=== PATIENT | female | born 1960 | race Caucasian/White ===

== ENCOUNTER 2018-04-18 08:39 | Outpatient (CLI) | payer MEDICAID, SELFPAY ==
[2018-04-18 10:02] LABS: ALT 50 U/L (12-78); AST 26 U/L (15-37); Albumin 3.6 g/dL (3.4-5.0); Alkaline Phosphatase 135 U/L (46-116); Bilirubin, Total 0.4 mg/dL (0.2-1.0); Total Protein 7.1 g/dL (6.4-8.2)
[2018-04-18 10:03] LABS: Cholesterol 163 mg/dL (50-200); HDL Cholesterol 34 mg/dL (40-60); LDL CHOLESTEROL 108 mg/dL (<100); Triglyceride 140 mg/dL (30-150)
== END 2018-04-18 08:59 ==
PROVIDERS: PCP Family Medicine; Visit Provider Family Medicine
DX: E11.9 Type 2 diabetes mellitus without complications (principal); E78.5 Hyperlipidemia, unspecified; R74.8 Abnormal levels of other serum enzymes
CPT/HCPCS: 36415; 80061; 80076; 83721

== ENCOUNTER 2018-06-09 11:03 | Outpatient (CLI) | payer MEDICAID, SELFPAY ==
--- NOTE | 2018-06-09 10:45 | DI.RAD_ITS ---
SYMPTOMS/DIAGNOSIS: JACOBO RHONCHI ON EXAM, ACUTE BRONCHITIS, J20.9 PA AND LATERAL CHEST: Comparison is made with [id number]. The heart is enlarged, unchanged. The patient is status post CABG. The lungs appear clear. No infiltrate, effusion or pulmonary edema is seen. IMPRESSION: Cardiomegaly. No acute abnormality.
== END 2018-06-09 11:23 ==
PROVIDERS: PCP Family Medicine; Visit Provider Family Medicine
DX: J20.9 Acute bronchitis, unspecified (principal); I51.7 Cardiomegaly; J98.8 Other specified respiratory disorders
CPT/HCPCS: 71046

== ENCOUNTER 2018-12-10 14:01 | Emergency (ER) | payer MEDICAID, SELFPAY ==
[2018-12-10 14:12] VITALS: BP 143/78; PULSE 93; RESP 18; TEMP 36.6; O2SAT 97
--- NOTE | 2018-12-10 14:28 | DI.RAD_ITS ---
SYMPTOM/DIAGNOSIS: COUGH FRONTAL AND LATERAL CHEST: Comparison is made with 06/09/18. Heart size and pulmonary vasculature are within normal limits. Sternal wires are in place. The lungs are clear. The bones appear intact. IMPRESSION: No acute pulmonary process.
--- NOTE | 2018-12-10 14:36 | ED.GENADUL_ITS ---
Discharge Plan Disposition Patient Disposition: HOME Condition: Stable Discharge Details Chief Complaint: RespSymp Clinical Impression: Otitis media, Otitis externa, URI (upper respiratory infection) Primary Care Provider: Oskar Moreno ED Provider: Dimitrios Bateman Home Meds and New Rx's Prescriptions: New amoxicillin-pot clavulanate [Augmentin] 875-125 mg tablet 1 tab PO BID 7 Days Qty: 14 RF: 0 Ciprodex 0.3-0.1 % drops,suspension 4 drp OT BID 7 Days Qty: 7.5 RF: 0 Continued metformin 1,000 mg tablet 1,000 mg PO BID MDD 2,000 mg Qty: 180 RF: 3 Praluent Pen 75 mg/mL pen injector 75 mg subcut q2w Qty: 2 RF: 6 albuterol sulfate [ProAir HFA] 90 mcg/actuation HFA aerosol inhaler 2 puff Inhalation Q4H PRN Qty: 1 RF: 12 atorvastatin 80 mg tablet 80 mg PO DAILY Qty: 90 RF: 3 nitroglycerin 0.4 mg tablet, sublingual 0.4 mg Sublingual PRN Qty: 30 RF: 6 metoprolol succinate 50 mg tablet extended release 24 hr 50 mg PO DAILY Qty: 90 RF: 3 Farxiga 10 mg tablet 10 mg PO QAM Qty: 90 RF: 3 Vitamin D3 (calcium cit-phos) 1 EACH tablet 1 ea PO DAILY Qty: 90 RF: 3 aspirin [Aspir-81] 81 MG tablet,delayed release (DR/EC) 81 mg PO MWF Qty: 100 RF: 3 (DME) lancets 1 EACH misc 1 ea Miscellaneous DAILY Qty: 100 RF: 6 isosorbide mononitrate 10 MG tablet 10 mg PO BID Qty: 180 RF: 3 ezetimibe [Zetia] 10 MG tablet 10 mg PO DAILY Qty: 90 RF: 3 magnesium oxide 400 MG capsule 400 mg PO HS Qty: 90 RF: 3 indomethacin 25 mg capsule 25 mg PO TID PRN (Reason: migraine) Qty: 30 RF: 3 omeprazole 20 mg capsule,delayed release(DR/EC) 20 mg PO DAILY Qty: 90 RF: 3 amitriptyline 25 mg tablet 25 mg PO HS Qty: 90 RF: 3 (DME) FreeStyle Lite Strips strip 1 ea Miscellaneous BID Qty: 180 RF: 6 Discharge Instructions Instructions: Otitis Externa (ED), Otitis Media (ED), Upper Respiratory Infection (ED) Additional Instructions: Please take medication as prescribed and return to the emergency department for any new or significant worsening of symptoms. Otherwise during illness please get plenty of rest and follow-up with your primary care provider if not improving. Referrals: Oskar Moreno, [Primary Care Provider] - (If not improving in the next 5 days) Discharge Data Discharge Date/Time-TO BE ENTERED AT DEPARTURE: 12/10/18 16:27 Medical Decision Making Patient presenting to the emergency department for chief complaint of cough, and bilateral ear pain. Patient states that she started having the symptoms which worsened over the past week. Patient does state some drainage from her left ear that occurred within the last couple days. She does state some productivity of cough but mostly dry. Patient does state that she has had some sweating episodes but states this is normal for her . Patient denies fever chills, chest pain but does state some shortness of breath which is at her baseline. Patient is a former smoker that uses albuterol on a daily basis for her shortness of breath. Physical exam shows clear lung sounds except diminished in the right lower lobe, no wheezing, no tachypnea, and dry cough. HEENT exam is unremarkable except for left ear canal erythema, mild exudate, and some purulence noted behind TM. Due to edema difficult to visualize full TM but there is concern for possible rupture. Given patient's persistent worsening cough plan to do chest x-ray for concern of pneumonia but given left TM findings plan to treat for otitis media along with otitis externa Review of radiological imaging of chest shows no acute findings to suggest pneumonia. Patient placed upon Augmentin given that she states within the past couple months she has been on an antibiotic for bronchitis or pneumonia. Patient also placed upon Ciprodex for otitis externa. Return precautions were discussed. After discussion of diagnosis and plan of care patient has no further needs, questions, or concerns and states clear understanding to return to the emergency department for any worsening symptoms. HPI General Date/Time Provider Initiated Documentation: 12/10/18 14:08 . Limitations to Documentation: no limitations . Information obtained by: patient . History of Present Illness 58 year old F presents to the emergency department with the chief complaint of Cough and L ear pain, described as moderate, Quality is described as aching, and is localized to the head and left (ear). Patient reports no radiation. Patient started experiencing this week(s) (1) and it has been constant. No relieving factors improve symptom(s), No exacerbating factors reported . Patient notes cough; denies fever/chills, headaches, malaise and nausea/vomiting. Patient did receive the following treatments prior to arrival, none Related Data Home Medications Medication Instructions Recorded Confirmed Vitamin D3 (calcium cit-phos) 1 ea PO DAILY #90 10/10/12 12/10/18 aspirin [Aspir-81] 81 mg PO MWF #100 tab 04/06/17 12/10/18 lancets #100 ea 08/23/17 12/10/18 ezetimibe [Zetia] 10 mg PO DAILY #90 tab 12/09/17 12/10/18 isosorbide mononitrate 10 mg PO BID #180 tab-cap 12/09/17 12/10/18 magnesium oxide 400 mg PO HS #90 tab-cap 12/09/17 12/10/18 alirocumab 75 mg/mL subcutaneous 75 mg SUBCUT q2w #2 pen 02/24/18 12/10/18 pen injector metformin 1,000 mg tablet 1,000 mg PO BID #180 tab MDD 2,000 02/24/18 12/10/18 mg indomethacin 25 mg capsule 25 mg PO TID PRN #30 tab-cap 03/28/18 12/10/18 albuterol sulfate 90 mcg/actuation 2 puff INHALATION Q4H PRN #1 06/09/18 12/10/18 aerosol inhaler inhaler atorvastatin 80 mg tablet 80 mg PO DAILY #90 tab-cap 06/09/18 12/10/18 metoprolol succinate 50 mg 50 mg PO DAILY #90 tab 06/09/18 12/10/18 tablet,extended release 24 hr nitroglycerin 0.4 mg sublingual 0.4 mg SUBLINGUAL PRN #30 tab 06/09/18 12/10/18 tablet omeprazole 20 mg capsule,delayed 20 mg PO DAILY #90 tab-cap 08/23/18 12/10/18 release dapagliflozin 10 mg tablet 10 mg PO QAM #90 tab 09/13/18 12/10/18 amitriptyline 25 mg tablet 25 mg PO HS #90 tab 10/04/18 12/10/18 blood sugar diagnostic #180 strip 10/25/18 12/10/18 amoxicillin-pot clavulanate 1 tab PO BID 7 Days #14 tab 12/10/18 [Augmentin] ciprofloxacin-dexamethasone 4 drp OT BID 7 Days #7.5 ml 12/10/18 [Ciprodex] Previous Rx's Medication Instructions Recorded lancets #100 ea 08/23/17 ezetimibe [Zetia] 10 mg PO DAILY #90 tab 12/09/17 isosorbide mononitrate 10 mg PO BID #180 tab-cap 12/09/17 magnesium oxide 400 mg PO HS #90 tab-cap 12/09/17 alirocumab 75 mg/mL subcutaneous 75 mg SUBCUT q2w #2 pen 02/24/18 pen injector metformin 1,000 mg tablet 1,000 mg PO BID #180 tab MDD 2,000 02/24/18 mg indomethacin 25 mg capsule 25 mg PO TID PRN #30 tab-cap 03/28/18 albuterol sulfate 90 mcg/actuation 2 puff INHALATION Q4H PRN #1 06/09/18 aerosol inhaler inhaler atorvastatin 80 mg tablet 80 mg PO DAILY #90 tab-cap 06/09/18 metoprolol succinate 50 mg 50 mg PO DAILY #90 tab 06/09/18 tablet,extended release 24 hr nitroglycerin 0.4 mg sublingual 0.4 mg SUBLINGUAL PRN #30 tab 06/09/18 tablet omeprazole 20 mg capsule,delayed 20 mg PO DAILY #90 tab-cap 08/23/18 release dapagliflozin 10 mg tablet 10 mg PO QAM #90 tab 09/13/18 amitriptyline 25 mg tablet 25 mg PO HS #90 tab 10/04/18 blood sugar diagnostic #180 strip 10/25/18 amoxicillin-pot clavulanate 1 tab PO BID 7 Days #14 tab 12/10/18 [Augmentin] ciprofloxacin-dexamethasone 4 drp OT BID 7 Days #7.5 ml 12/10/18 [Ciprodex] Allergies Allergy/AdvReac Type Severity Reaction Status Date / Time No Known Allergies Allergy Verified 12/10/18 14:16 General Stated Complaint: RespSymp ASHLEE: 4 Review of Systems Constitutional Reports system reviewed and no additional complaints, except as docu, Denies chills, Denies fever(s), Denies headache(s), Denies malaise, Denies night sweats and Denies weakness ENT Reports abnormal hearing (L ear), Reports ear discharge (L ear, like cottage cheese), Denies headache(s), Denies nasal congestion, Reports nasal discharge (yellow drainage), Denies post nasal drip, Denies sinus pain, Denies sinus pressure and Denies sore throat Cardiovascular Denies chest pain Respiratory Reports change in phlegm color (llow), Reports chest congestion, Reports cough, Denies hemoptysis and Reports pain with cough Neurologic Reports abnormal hearing (L ear), Denies headache(s) and Denies weakness [facility] Medical History (Updated 12/09/18 @ 12:05 by Sami Peng) Atherosclerosis of [place] coronary artery of [place] heart without angina pectoris (Chronic 08/30/06) Carotid artery stenosis (Chronic 09/08/11) Chronic airway obstruction, not elsewhere classified (Chronic 09/08/11) Chronic airway obstruction, not elsewhere classified (Chronic 09/08/11) Coronary atherosclerosis of [place] coronary vessel (Chronic 08/30/06) Diabetes mellitus (Chronic 09/16/10) DM w/ complication (Chronic) Elevated alkaline phosphatase measurement (Chronic 12/30/15) Migraine (Chronic) Obesity, unspecified (Chronic 09/08/11) Pain, joint, lower leg, left (Chronic 09/08/11) Pure hypercholesterolemia (Chronic 09/08/11) Surgical History (Updated 05/12/18 @ 12:[address]) Colonoscopy - MAC (03/08/15) Coronary Stent (11/03/13) Replacement of total knee joint (05/04/11) Family History Mother Neoplasm Father No problems noted. Sister Breast cancer Brother No problems noted. Brother No problems noted. Social History (Updated 02/24/18 @ 09:36 by Dede Lee LPN) Smoking/Tobacco Use Status: Former Tobacco Use Alcohol Intake: never Drug use: Never Substance use type: does not use Adopted: No Caregiver/Support person: No Foster care: No Household members: spouse Housing: house Number of Children: 2 number of grandchildren: 4 What type of physical activity do you participate in: walking Duration: 15-30 minutes/day Frequency: 1-2 times per week Water heater temp set <120 deg: Yes Working smoke detector in home: Yes Fire extinguisher in home: Yes Carbon monox detector in home: Yes Do you feel safe at home: Yes Do you feel safe in your relationship?: Yes Exam Const General: cooperative, comfortable, no acute distress, well developed and well groomed Nutritional Appearance: obese Orientation: alert and oriented x3 HENMT Head: normal to inspection, normocephalic and atraumatic Ears: TM normal on the right, EAC abnormal (erythema and white discharge in ear canal) erythema and EAC tenderness, external ear abnormal auricular tenderness and TM abnormal (loss of landmarks) dull General nose exam: external nose normal Face and sinus: normal facial exam and face symmetric Mouth: oral mucosae normal, lip normal, tongue normal, salivary ducts normal, oropharynx normal and moist mucous membranes Resp Effort & Inspection: normal respiratory effort, able to speak in complete sentences and cough (frequent) Quality of cough: actively coughing Auscultation: clear to auscultation bilaterally, diminished lung sounds on the left throughout, no rales, no rhonchi, no wheezes and no rubs Tactile Fremitus: tactile fremitus absent Cardio Rate: regular rate Rhythm: regular rhythm Heart Sounds: S1 normal, S2 normal, no click, no gallops, no murmurs and no rubs Pulses: radial pulses present Skin General skin exam: no rashes or lesions noted Extrem General: no clubbing, cyanosis or edema and no pedal edema Course Vital Signs Temperature 36.6 C 12/10/18 14:12 Pulse 93 H 12/10/18 14:12 Respiratory Rate 18 12/10/18 14:12 Blood Pressure 143/78 H 12/10/18 14:12 Pulse Oximetry 97 12/10/18 14:12 Temperature 36.6 C 12/10/18 14:12 Temperature Source Oral 12/10/18 14:12 Pulse 93 H 12/10/18 14:12 Respiratory Rate 18 12/10/18 14:12 Respiratory Effort 12/10/18 14:34 Blood Pressure 143/78 H 12/10/18 14:12 Blood Pressure Position Sitting 12/10/18 14:12 Pulse Oximetry 97 12/10/18 14:12 Oxygen Delivery Method Room Air 12/10/18 14:12 Oxygen Flow Rate 0 12/10/18 14:12 Pain Level 0 12/10/18 14:12
--- NOTE | 2018-12-10 15:56 | DI.VRAD_ITS ---
EXAM: XR Chest, 2 Views EXAM DATE/TIME: 12/10/2018 2:31 PM CLINICAL HISTORY: 58 years old, female; Cough TECHNIQUE: Imaging protocol: XR of the chest, 2 views. COMPARISON: CR XR CHEST 2V PA LATERAL 06/09/2018 10:50 AM FINDINGS: Lungs: Unremarkable. No consolidation. Pleural space: Unremarkable. No pleural effusion. No pneumothorax. Heart/Mediastinum: No change cardiomegaly. Bones/joints: Status post median sternotomy. IMPRESSION: No evidence for acute abnormality in the chest. COMMENT: Preliminary interpretation is based on receipt of 2 image(s). A final report will be issued subsequently. Dictated and Authenticated by: Bernadette Cheng MD. Ordering:KARIN Plunkett MD
== END 2018-12-10 16:27 | disposition home or self-care (01) ==
PROVIDERS: Emergency Provider Nurse Practitioner Family; PCP Family Medicine
DX: H66.93 Otitis media, unspecified, bilateral (principal); H60.503 Unspecified acute noninfective otitis externa, bilateral; J06.9 Acute upper respiratory infection, unspecified
CPT/HCPCS: 36416; 82962; 99283; 71046

== ENCOUNTER 2019-02-21 07:44 | Outpatient (CLI) | payer MEDICAID, SELFPAY ==
[2019-02-21 08:54] LABS: ALT 36 U/L (14-59); AST 17 U/L (15-37); Albumin 3.7 g/dL (3.4-5.0); Alkaline Phosphatase 107 U/L (46-116); Anion Gap 9.5 mmol/L (3-11); BUN 13 mg/dL (7-18); Bilirubin, Total 0.5 mg/dL (0.2-1.0); CO2 30.5 mmol/L (21.0-32.0); CREATININE 0.84 mg/dL (0.55-1.02); Calcium 8.9 mg/dL (8.5-10.1); Calculated LDL 96 mg/dL; Chloride 103 mmol/L (98-107); Cholesterol 158 mg/dL (50-200); Glucose 109 mg/dL (70-100); HDL Cholesterol 36 mg/dL (40-60); Potassium 3.9 mmol/L (3.5-5.1); Sodium 143 mmol/L (136-145); Triglyceride 131 mg/dL (30-150)
== END 2019-02-21 08:04 ==
PROVIDERS: PCP Family Medicine; Visit Provider Family Medicine
DX: I25.10 Atherosclerotic heart disease of native coronary artery without angina pectoris (principal)
CPT/HCPCS: 36415; 80053; 80061

== ENCOUNTER 2019-03-30 01:38 | Outpatient (CLI) | payer MEDICAID, SELFPAY ==
--- NOTE | 2019-03-30 09:30 | DI.US_ITS ---
APPROVED REPORT Conclusion Left Ventricle : The left ventricle is normal size. The left ventricular ejection fraction is within the normal range. The apical cap is hypokinetic. The remainder of the segments are normal. LVEF is 4 5-50%. Right Ventricle : Right ventricle is grossly normal in size. The right ventricular systolic function is normal. Atria : The left atrium size is normal. Right atrium is not well visualized. Aortic Valve : Aortic valve is probably trileaflet. There is no aortic valvular stenosis. No aortic regurgitation is present. Mitral Valve : The mitral valve is normal in structure and function. Trace mitral regurgitation. No e vidence of mitral valve stenosis. Tricuspid Valve : Tricuspid valve is not well visualized. Trace tricuspid regurgitation. Great Vessels : IVC is normal in size and collapses >50% with inspiration. RVSP is estimated to be b etween 25-30 mmHg There is no prior echocardiogram available for comparison EXAM: Comprehensive 2D, Doppler, and color-flow Echocardiogram Patient Location: Out-Patient Product Safety Administrator: MARANDA Hernandez (AE) Indications: Murmur Left Ventricle The left ventricle is normal size. The left ventricular ejection fraction is within the normal range. There is normal left ventricular wall thickness. The apical anteroseptal wall is hypokinetic. The ap ical anterior wall is hypokinetic. The apical anterolateral wall is hypokinetic. The apical inferior wall is hypokinetic. The apical apex wall is hypokinetic. The remainder of the segments are normal. T here is evidence of impaired relaxation LVEF is 45-50%. Right Ventricle Right ventricle is grossly normal in size. The right ventricular systolic function is normal. Atria The left atrium size is normal. Right atrium is not well visualized. Aortic Valve Aortic valve is probably trileaflet. There is no aortic valvular stenosis. No aortic regurgitation is present. Mitral Valve The mitral valve is normal in structure and function. No evidence of mitral valve stenosis. Trace chase ral regurgitation. Tricuspid Valve Tricuspid valve is not well visualized. Trace tricuspid regurgitation. Pulmonic Valve Pulmonic valve is not well visualized. Great Vessels The aortic root is normal in size. IVC is normal in size and collapses >50% with inspiration. RVSP is estimated to be between 25-30 mmHg Pericardium There is no pericardial effusion. 2D Dimensions IVSd 1.13 cm F: 0.6-1.0 LV EDV A2C 56.19 mL PWd 1.12 cm F: 0.6 - 1.0 LV EDV A4C 79.16 mL LVDd 4.02 cm F: 3.9 - 5.3 LA Volume Index A2C 18.23 mL/m2 LVDs 2.84 cm F: 2.2 - 3.5 LA Volume Index A4C 18.26 mL/m2 Aortic Root 2.70 cm F: 2.7 - 3.3 LA Volume Index Biplane 18.76 mL/m2 Left Atrium 3.41 cm F: 2.7 - 3.8 LA Area A4C 13.26 cm2 LVOT 1.86 cm (M/F) 1.5-2.5 LA Area A2C 12.88 cm2 Ascending Aorta 2.34 cm F: 2.3 - 3.1 LA/Aortic Root Ratio 0.79 LVEF (Teich) 56.97 % EF AP4 54.54 % LVEF (Cowan's) 45.89 % F: 54 - 74 EF AP2 31.52 % FS 29.47 % EF BP 45.89 % LV Diastology E Decel Time 202.00 (160-240 msec) E/A Ratio 0.8 MED E' 0.07 (>0.07 m/s) LV E/e MED 12.05 (<14) LAT E' 0.08 (>0.1 m/s) LV E/e LAT 10.25 (<14) Aortic Valve LVOT Area 2.72 cm2 LVOT Peak Jose. 1.29 m/s LVOT Mean Jose. 0.76 m/s LVOT Peak Gr. 6.65 mmHg LVOT Mean Gr. 2.89 mmHg LVOT VTI 0.28 m AoV Peak Jose. 1.32 (0.5-1.3 m/s) AoV Mean Jose. 0.95 m/s AO Peak GR. 6.97 mmHg AO Mean GR. 3.94 (<5 mmHg) AO VTI 0.24 (0.18-0.25 m) VERNON (VTI) 3.18 (2.5-4.5 cm2) VERNON (VTI) Index 1.70 cm/m2 Mitral Valve MV E Max Jose. 0.79 (0.4-1.3 m/s) MV A Velocity 0.94 (0.4-1.3 m/s) E/A Ratio 0.83 MV Decel. Time 201.67 (160-240 msec) MV PHT 58.48 msec MVA PHT 3.76 cm2 Pulmonary Valve PV Peak Velocity 0.85 (0.5-1.5 m/s) Tricuspid Valve TR P. Velocity 2.51 m/s TV Regurg Vmax 2.51 m/s TR P. Gradient 25.26 mmHg
[2019-03-30 12:04] LABS: Anion Gap 7.9 mmol/L (3-11); BUN 11 mg/dL (7-18); CO2 31.1 mmol/L (21.0-32.0); CREATININE 0.86 mg/dL (0.55-1.02); Calcium 9.7 mg/dL (8.5-10.1); Chloride 103 mmol/L (98-107); Glucose 89 mg/dL (70-100); Potassium 4.3 mmol/L (3.5-5.1); Sodium 142 mmol/L (136-145)
== END 2019-03-30 01:58 ==
PROVIDERS: PCP Family Medicine; Visit Provider Internal Medicine Cardiovascular Disease
DX: R01.1 Cardiac murmur, unspecified (principal); I25.10 Atherosclerotic heart disease of native coronary artery without angina pectoris; Z79.899 Other long term (current) drug therapy
CPT/HCPCS: 36415; 80048; 93306

== ENCOUNTER 2019-04-10 01:16 | Outpatient (CLI) | payer MEDICAID, SELFPAY ==
--- NOTE | 2019-04-10 12:38 | DI.MAMMO_ITS ---
EXAM: MG MAMMO SCREENING CLINICAL HISTORY: screening,z12.39 TECHNIQUE: Bilateral full field digital CC and MLO mammographic images were obtained with 3D tomosyn thesis and utilizing computer aided detection (CAD). COMPARISON: Available for comparison. FINDINGS: Masses/Architectural Distortion: None seen. Microcalcifications: No suspicious pleomorphic-type are seen. Skin Thickening/Nipple Retraction: None. IMPRESSION: 1. No significant interval change with no specific features of malignancy noted. 2. Unless there is more urgent need, screening mammography is recommended, as per [place] [employer] guidelines. ACR BI-RAD Category- 1 Negative Breast Density - Category A - Almost entirely fatty A negative radiographic report should not delay biopsy if a dominant or clinically suspicious mass is present. Up to ten percent of cancers are not identified on mammography. A negative report may reinforce clinical impression. Adenosis and dense breasts may obscure an underlying neoplasm. False positive reports average 6 to 10%. Patient will receive a letter notifying them of these results.
== END 2019-04-10 01:36 ==
PROVIDERS: PCP Family Medicine; Visit Provider Family Medicine
DX: Z12.31 Encounter for screening mammogram for malignant neoplasm of breast (principal)
CPT/HCPCS: 77063; 77067

== ENCOUNTER 2019-10-04 08:54 | Outpatient (CLI) | payer MEDICAID, SELFPAY ==
[2019-10-06 08:26] LABS: COVID-19 RT-PCR Result Not Detected ((See Note))
== END 2019-10-04 09:14 ==
PROVIDERS: PCP Family Medicine; Visit Provider Surgery
DX: Z11.59 Encounter for screening for other viral diseases (principal); Z01.818 Encounter for other preprocedural examination
CPT/HCPCS: U0003

== ENCOUNTER 2019-10-09 06:48 | Day surgery (SDC) | payer MEDICAID, SELFPAY ==
--- NOTE | 2019-10-09 06:13 | PDOC.DSDIS_ITS ---
Discharge Plan Disposition Patient Disposition: HOME Condition: Good Discharge Details Reason For Visit: HEART BURN / REFLUX Attending Provider: Aileen Solano Primary Care Provider: Oskar Moreno Home Meds and New Rx's Prescriptions: New omeprazole 40 mg capsule,delayed release(DR/EC) 40 mg PO BID Qty: 60 RF: 0 Continued albuterol sulfate [ProAir HFA] 90 mcg/actuation HFA aerosol inhaler 2 puff Inhalation Q4H PRN Qty: 1 RF: 12 (DME) lancets 28 gauge misc 1 ea Miscellaneous DAILY Qty: 100 RF: 6 (DME) blood sugar diagnostic [FreeStyle Lite Strips] Strip 1 ea Miscellaneous BID Qty: 180 RF: 6 nitroglycerin 0.4 mg tablet, sublingual 0.4 mg Sublingual PRN Qty: 30 RF: 6 lisinopril 5 mg tablet 5 mg PO DAILY Qty: 60 RF: 3 Vitamin D3 (calcium cit-phos) 1 EACH tablet 1 ea PO DAILY Qty: 90 RF: 3 aspirin [Aspir-81] 81 MG tablet,delayed release (DR/EC) 81 mg PO MWF Qty: 100 RF: 3 amitriptyline 25 mg tablet 25 mg PO HS Qty: 90 RF: 3 ezetimibe [Zetia] 10 mg tablet 10 mg PO DAILY Qty: 90 RF: 3 isosorbide mononitrate 10 mg tablet 10 mg PO BID Qty: 180 RF: 3 magnesium oxide 400 mg magnesium capsule 400 mg PO HS Qty: 90 RF: 3 metformin 1,000 mg tablet 1,000 mg PO BID MDD 2,000 mg Qty: 180 RF: 3 Praluent Pen 75 mg/mL pen injector 75 mg subcut q2w Qty: 2 RF: 12 metoprolol succinate 50 mg tablet extended release 24 hr 50 mg PO DAILY Qty: 90 RF: 3 indomethacin 25 mg capsule 25 mg PO TID PRN (Reason: migraine) Qty: 30 RF: 3 Farxiga 10 mg tablet 10 mg PO QAM Qty: 90 RF: 3 atorvastatin 80 mg tablet 80 mg PO HS RF: 0 Discontinued omeprazole 40 mg capsule,delayed release(DR/EC) 40 mg PO DAILY Qty: 90 RF: 3 Discharge Instructions Instructions: Upper Endoscopy (DC), Diet for Stomach Ulcers and Gastritis (GEN), Gastritis (DC), Gastroesophageal Reflux Disease (DC) Additional Instructions: Findings: Inflammation of the stomach and esophagus Small stomach ulcers Follow up: 10 days Please call if you develop: fevers >101.5 Nausea or Vomiting Abdominal pain that is not transient DAY SURGERY UNIT POST ENDOSCOPY INSTRUCTIONS 1. Because there will be medication in your system for the next 24 hours, you may feel a little sleepy. Your coordination will be affected. Therefore: a. Do not drive or operate dangerous equipment for 24 hours. b. Do not drink alcohol beverages for 24 hours (not even beer). c. Plan to go home and rest for the day. 2. Generally there are no restrictions on your activity after a day or so has gone by, but you may feel a bit fatigued for a few days. 3 After you arrive home you may have a light meal and return to a normal diet as you can tolerate it without feeling sick to your stomach. 4. After surgery, you may feel pain or discomfort. This should be only martinez sient, but if it persists please contact your doctor. 5. If there are any questions regarding the findings of your procedure, please feel free to contact your doctor. 6. If you are unable to contact your doctor with a problem, contact the hospital at [phone]. 7. Continue all your regular medications unless directed otherwise. I understand the above instructions and have no questions. Signature of Patient or Responsible Adult Escort Date/Time Name of Responsible Adult Escort Signature of Nurse Date/Time Activity:: Activity as Tolerated Diet:: low acid diet Discharge Orders Discharge Orders: Discharge Order (Routine); Ordered 10/09/19 Ordered By: Aileen Solano DS: Diagnosis Discharge Diagnosis (1) Gastritis determined by endoscopy: Status: Acute (2) Bile reflux esophagitis: Status: Acute
--- NOTE | 2019-10-09 06:14 | ENDO_ITS ---
Date of service: 10/09/19 Time of Service: 08:50 Endoscopy Report DATE OF PROCEDURE: 10/09/19 PRE-OP DIAGNOSIS: Epigastric pain POST-OP DIAGNOSIS: same PROCEDURE: EGD SURGEON: Aileen Solano ANESTHESIA: other (General/ ASA 2/Judah Chung, ТАТЬЯНА) ESTIMATED BLOOD LOSS: 5 PATHOLOGY: other (Antrum bx, greater curviture bx, GE junction bx) COMPLICATIONS: None DISPOSITION: same day INDICATIONS: 59 year old female with increased symptoms of GERD over last 6 months. Has been on Omeprazole 20 mg for years which was increased to 40 mg. There has been no improvement in her symptoms on the higher dose. Cardology saw her in February and didn't feel that her symptoms were cardiac related. She had an ECHO done. P\\ EGD under sedation on 10/09/19 Covid testing on 10/05/19 Adviced patient to please stay home after she is tested for COVID until her EGD is done. Discussed that her would not be able to accompany her into [facility]. He needs to drop her off and we will call him when she is ready to be picked up. Explained that providers and nursing staff in the procedure room will be wearing eye protection and N-95 for our protection even if Covid is negative due to the fact that we do nt know at this time if the Virus is live within the GI tract. Patient understands and wishes to proceed. Risks, benefits and complications have been reviewed. Complications include but are not limited to bleeding, pain, perforation, sore throat, aspiration, and adverse reaction to the medications. Questions were entertained and answered to their satisfaction and they wished to proceed. No guarantees were given or implied. FINDINGS: Inflammation in the stomach with multiple shallow ulcers Small Hiatal hernia Reflux esophagitis PROCEDURE DESCRIPTION: After informed consent was obtained the patient was take to the procedure room and placed in a supine position. Monitors were applied and a time out was done. The patients name, date of , procedure type, allergies to medications and metal in their body was reviewed. A bite block was placed and the patient was sedated. Once sedated and comfortable the gastroscope was advanced through the oropharynx which was grossly normal into the esophagus. The proximal and mid- esophagus were normal. In the distal esophagus there was mild inflammation note d. The scope was advanced into the stomach and through the pylorus into the 3rd portion of the duodenum. The duodenum was noted to be normal. The scope was retracted back into the stomach. There was moderate inflammation throughout the stomach. There were shallow ulcers in the antrum. Biopsies were done of the antrum and the ulcers to rule out H. pylori and malignancy. Biopsies were done of the greater curviture as well. The scope was retro-flexed. The cardia and fundus were noted to be normal. There was a small hiatal hernia noted. The scope was retracted back into the esophagus and biopsies were done of the GE junction to rule out Paulino's. The GE junction was at 38 cm. The scope was removed and the patient was woken up and taken back to [facility] in stable condition. Follow up: 2 weeks in the office. Omperazole was increased to 40 mg BID.
[2019-10-09 07:10] VITALS: BP 129/66; PULSE 83; RESP 22; TEMP 35.9; O2SAT 96
[2019-10-09] MEDS: Lactated Ringers 1,000 ML 80 ML IV (07:25)
--- NOTE | 2019-10-09 08:34 | STOM_PTH ---
PATIENT: Hannah Hill LOC: [facility] U#:[id number] AGE/SX: 59/F ROOM: RE10/09/[address]: Aileen Solano MD : [id number] BED: DIS: 10/09/2019 SPEC #: [id number] RECD: 10/09/19 12:07 STATUS: MARYJANE RESeth #: [id number] NAIN: 10/09/19 08:[address]: Aileen Solano DEPT: Surgical Specimen RECD BY: Catherine Patel ENTERED: 10/09/19 12:08 SP TYPE: STOMACH OTHR DR: Oskar Moreno DO Tissues: 1 - STOMACH BIOPSY 2 - ESOPHAGUS BIOPSY 3 - ESOPHAGUS BIOPSY Procedures: GROSS AND MICRO LEVEL 4 Comments: [id number]
[2019-10-09 09:10] VITALS: BP 92/52; PULSE 71; RESP 22; TEMP 36.1; O2SAT 95
== END 2019-10-09 09:41 | disposition home or self-care (01) ==
LOC: SUR 06:49
PROVIDERS: PCP Family Medicine; Visit Provider Surgery
PROC: 0DJ68ZZ Inspection of Stomach, Via Natural or Artificial Opening Endoscopic (ICD-10-PCS; CPT 43235; principal; 2019-10-09 08:15)
DX: K21.0 Gastro-esophageal reflux disease with esophagitis (principal); R10.13 Epigastric pain; K25.9 Gastric ulcer, unspecified as acute or chronic, without hemorrhage or perforation; K31.89 Other diseases of stomach and duodenum; K44.9 Diaphragmatic hernia without obstruction or gangrene; K22.70 Barrett's esophagus without dysplasia
CPT/HCPCS: 43239; 88305; J2001; J2704

== ENCOUNTER 2020-08-16 03:16 | Outpatient (CLI) | payer MEDICAID, SELFPAY ==
[2020-08-16 11:09] LABS: Calculated LDL 77 mg/dL (<100); Cholesterol 153 mg/dL (<200); HDL Cholesterol 38 mg/dL (40-60); Triglyceride 191 mg/dL (<150)
== END 2020-08-16 03:17 | disposition home or self-care (01) ==
LOC: LBO 03:16
PROVIDERS: PCP Family Medicine; Visit Provider Family Medicine
DX: E78.00 Pure hypercholesterolemia, unspecified (principal)
CPT/HCPCS: 80061

== ENCOUNTER 2020-11-21 01:57 | Outpatient (CLI) | payer MEDICAID, SELFPAY ==
--- NOTE | 2020-11-21 07:30 | DI.RAD_ITS ---
Exam(s) XR HIP LT COMPLETE AP PELVIS EXAM: XR HIP LT COMPLETE AP PELVIS CLINICAL HISTORY: Worsening chronic L hip pain,M76.899,ENTHESOPATHY HIP REGION. TECHNIQUE: 2D digital imaging was performed. COMPARISON: No exams were available for comparison FINDINGS: There is no evidence of pelvic nor hip fracture. No obvious degenerative changes in the hips. Bone density normal. No osseous lesions. Sacroiliac joints appear unremarkable. IMPRESSION: DATA REPOSITORY: RADIATION DOSE DELIVERED:
--- NOTE | 2020-11-21 07:30 | DI.MAMMO_ITS ---
Exam(s) MAMMO SCREENING EXAM: MAMMO SCREENING CLINICAL HISTORY: screening,Z12.39. TECHNIQUE: Bilateral full field digital CC and MLO mammographic images were obtained with 3D tomosyn thesis and utilizing computer aided detection (CAD). COMPARISON: Prior mammograms dating back to 2013, the most recent being March 2019. Her sister was apparently diagnosed with breast cancer, apparently age not known. FINDINGS: There are no CAD designations. There are no new spiculated masses nor malignant appearing microcalcification groups. There is no significant architectural distortion nor skin thickening-retraction. IMPRESSION: No radiographic evidence of malignancy. BI-RADS Category 1 - Negative Breast Density - Category B - Scattered areas of fibroglandular density Breast density Category C or D implies that the patient has dense breast tissue. Dense breast tissue can make it harder to find cancer on a mammogram. Dense breast tissue is also associated with an incr eased risk of breast cancer. This information about the result of the mammogram report was provided to the patient to raise their awareness. Use this report when you speak with the patient about their risks for breast cancer, which includes their family history. At that time, you may recommend additional screening tests (Ultrasoun d or MRI) as these tests may add significant information. A negative radiographic report should not delay biopsy if a dominant or clinically suspicious mass is present. Up to ten percent of cancers are not identified on mammography. A negative report may reinforce clinical impression. Adenosis and dense breasts may obscure an underlying neoplasm. False positive reports average 6 to 10%. Patient will receive a letter notifying them of these results.
== END 2020-11-21 02:17 ==
PROVIDERS: PCP Family Medicine; Visit Provider Family Medicine
DX: Z12.31 Encounter for screening mammogram for malignant neoplasm of breast (principal); R92.8 Other abnormal and inconclusive findings on diagnostic imaging of breast; M76.892 Other specified enthesopathies of left lower limb, excluding foot; M25.552 Pain in left hip; G89.29 Other chronic pain
CPT/HCPCS: 77063; 77067; 73502

== ENCOUNTER 2021-06-04 03:54 | Outpatient (CLI) | payer MEDICAID, SELFPAY ==
[2021-06-04 12:33] LABS: ALT 48 U/L (14-59); AST 27 U/L (15-37); Alkaline Phosphatase 120 U/L (46-116); Anion Gap 7.4 mmol/L (3-11); BUN 16 mg/dL (7-18); Bilirubin, Total 0.5 mg/dL (0.2-1.0); CO2 30.6 mmol/L (21.0-32.0); CREATININE 1.1 mg/dL (0.55-1.02); Calcium 9.3 mg/dL (8.5-10.1); Chloride 103 mmol/L (98-107); Estimated GFR 50.84 (mL/min/1.73m2); Glucose 94 mg/dL (74-106); Sodium 141 mmol/L (136-145); Total Protein 7.3 g/dL (6.4-8.2)
[2021-06-05 10:14] LABS: Hepatitis C Ab w Rflx HCV PCR Negative (Negative)
== END 2021-06-04 03:55 | disposition home or self-care (01) ==
LOC: LBO 03:55
PROVIDERS: PCP Family Medicine; Visit Provider Family Medicine
DX: E11.9 Type 2 diabetes mellitus without complications (principal); Z11.59 Encounter for screening for other viral diseases
CPT/HCPCS: 36415; 80053; 86803

== ENCOUNTER → 2021-10-06 00:16 | Outpatient (CLI) | payer MEDICAID, SELFPAY ==
--- NOTE | 2021-10-06 07:30 | DI.US_ITS ---
Exam(s) US CAROTID EXAM: US CAROTID CLINICAL HISTORY: Carotid bruit, right greater than left,r09.89,i25.10,coronary atheroscleros. TECHNIQUE: Ultrasound carotids performed using grayscale, color-flow, and spectral Doppler imaging. COMPARISON: US CAROTID ULTRASOUND from 05/12/2016 FINDINGS: RIGHT CAROTID ARTERY: Plaque: Mild. Scattered foci of calcific plaque. Velocity elevation: None. LEFT CAROTID ARTERY: Plaque: Minimal. Velocity elevation: None. VERTEBRAL ARTERIES: Antegrade flow. Measurements: R Bulb: 38.8cm/s PS / 14.5cm/s ED R CCA: 64.3cm/s PS / 16.7cm/s ED R ECA: 89.7cm/s PS / 16.8cm/s ED R ICA Prox: 55.5cm/s PS /21.4cm/s ED R ICA Mid: 71.7cm/s PS / 28.9cm/s ED R ICA Distal: 65.4cm/s PS /27.8cm/s ED R Vert: 39.9cm/s PS / 14.5cm/s ED R SVR: 1.12 R DVR: 1.73 L Bulb: 84.8cm/s PS /13.5cm/s ED L CCA: 95.8cm/s PS / 17.4cm/s ED L ECA: 147.2cm/s PS /15.7cm/s ED L ICA Prox:82.4cm/s PS / 12cm/s ED L ICA Mid: 122.2cm/sPS / 30.5cm/s ED L ICA Distal: 94.4cm/s PS / 24.1cm/s ED L Vert: 59cm/s PS / 16.8cm/s ED L SVR: 1.28 L DVR: 1.75 IMPRESSION: No evidence for hemodynamically significant carotid stenosis. Criteria for Carotid Stenosis: Normal: ICA PSV <125 cm/s no plaque or intimal thickening is visible. <50% stenosis: ICA PSV <125 cm/s and plaque or intimal thickening is visible. 50-69% stenosis: ICA PSV is 125-250 cm/s and plaque is visible. >70% stenosis to near occlusion: ICA PSV >250 cm/s with visible plaque and luminal narrowing. DATA REPOSITORY:
== END ==
PROVIDERS: PCP Family Medicine; Visit Provider Internal Medicine Cardiovascular Disease
DX: I25.10 Atherosclerotic heart disease of native coronary artery without angina pectoris (principal); R09.89 Other specified symptoms and signs involving the circulatory and respiratory systems
CPT/HCPCS: 93880

== ENCOUNTER 2022-09-01 07:51 | Outpatient (CLI) | payer MEDICAID, SELFPAY | END 2022-09-01 07:52 | disposition home or self-care (01) | LOC: DI.CARD 07:52 | PROVIDERS: PCP Family Medicine; Visit Provider Internal Medicine Cardiovascular Disease | CPT/HCPCS: 93010 ==

== ENCOUNTER 2022-09-16 00:48 | Outpatient (CLI) | payer MEDICAID, SELFPAY ==
--- NOTE | 2022-09-16 07:30 | DI.MAMMO_ITS ---
Exam(s) MAMMO SCREENING EXAM: MAMMO SCREENING CLINICAL HISTORY: screening,Z12.39 TECHNIQUE: Bilateral full field digital CC and MLO mammographic images were obtained with 3D tomosyn thesis and utilizing computer aided detection (CAD). COMPARISON: Available for comparison. FINDINGS: Masses/Architectural Distortion: There is an area of breast asymmetry in the outer left breast on the craniocaudad view. There appears slightly more spiculated compared to the prior examination. Microcalcifications: No suspicious pleomorphic-type are seen. Skin Thickening/Nipple Retraction: None. IMPRESSION: 1. Asymmetric breast tissue in the outer left breast which shows mild change compared to the prior ex amination. 2. This area should be further evaluated with a spot compression view. Left breast ultrasound should be obtained at that time. BI-RADS Category 0 - Assessment Incomplete: Need additional imaging evaluation Breast Density - Category B - Scattered areas of fibroglandular density Breast density category C or D implies that the patient has dense breast tissue. Dense breast tissue is very common and is not abnormal but dense breast tissue can make it harder to find cancer on a ma mmogram. Also, dense breast tissue may increase their breast cancer risk. This information about the result of the mammogram report was provided to the patient to raise their awareness. Use this report when you speak with the patient about their risks for breast cancer, which includes their family hist ory. At that time, you may recommend for more screening tests (Ultrasound or MRI) as they might be us eful based on their risk. A negative radiographic report should not delay biopsy if a dominant or clinically suspicious mass is present. Up to ten percent of cancers are not identified on mammography. A negative report may reinforce clinical impression. Adenosis and dense breasts may obscure an underlying neoplasm. False positive reports average 6 to 10%. Patient will receive a letter notifying them of these results.
== END 2022-09-16 01:08 ==
LOC: DI 00:48
PROVIDERS: PCP Family Medicine; Visit Provider Family Medicine
DX: Z12.31 Encounter for screening mammogram for malignant neoplasm of breast (principal)
CPT/HCPCS: 77063; 77067

== ENCOUNTER 2022-09-24 01:04 | Outpatient (CLI) | payer MEDICAID, SELFPAY ==
--- NOTE | 2022-09-24 | DI.US_ITS ---
Exam(s) MG MAMMO SCREEN CALL BACK UNI US BREAST LT LIMITED EXAM: MG MAMMO SCREEN CALL BACK UNI and U/S breast LT limited CLINICAL HISTORY: ASYMMETRIC TISSUE LEFT BREAST SHOWS MILD CHANGE R92.8 ABNL MAMMO. TECHNIQUE: Craniocaudal and mediolateral oblique Full Field Digital Mammography views of the left br east with Computer Aided Diagnosis followed by Tomosynthesis and left breast ultrasound. COMPARISON: US US BREAST LT LIMITED from 09/24/2022 FINDINGS: Mammography/Tomosynthesis: Masses/Architectural Distortion: The area identified is less concerning on the additional views. No suspicious masses or areas of architectural distortion are present. Microcalcifictions: No suspicious pleomorphic-type are seen. Skin Thickening/Nipple Retraction: None. Limited left breast US: Echotexture: Normal appearance of the glandular tissue. Shadowing: No suspicious foci. Cyst: None. Solid lesions: None seen. Ductal dilation: None. IMPRESSION: 1. No evidence of malignancy is noted. 2. Unless there is more urgent need, follow-up screening mammography is recommended, as per [employer] guidelines. 3. The findings were discussed with the patient on the date of the examination. BI-RADS Category 1 - Negative Breast Density - Category B - Scattered areas of fibroglandular density Breast density Category C or D implies that the patient has dense breast tissue. Dense breast tissue can make it harder to find cancer on a mammogram. Dense breast tissue is also associated with an incr eased risk of breast cancer. This information about the result of the mammogram report was provided to the patient to raise their awareness. Use this report when you speak with the patient about their risks for breast cancer, which includes their family history. At that time, you may recommend additional screening tests (Ultrasoun d or MRI) as these tests may add significant information. A negative radiographic report should not delay biopsy if a dominant or clinically suspicious mass is present. Up to ten percent of cancers are not identified on mammography. A negative report may reinforce clinical impression. Adenosis and dense breasts may obscure an underlying neoplasm. False positive reports average 6 to 10%. Patient will receive a letter notifying them of these results.
== END 2022-09-24 01:24 ==
LOC: DI 01:05
PROVIDERS: PCP Family Medicine; Visit Provider Family Medicine
DX: R92.8 Other abnormal and inconclusive findings on diagnostic imaging of breast (principal)
CPT/HCPCS: 76642; 77063; 77067

== ENCOUNTER 2022-12-02 02:38 | Outpatient (CLI) | payer MEDICAID, SELFPAY ==
[2022-12-02 12:47] LABS: Anion Gap 8.7 mmol/L (3-11); BUN 14 mg/dL (7-18); CO2 26.3 mmol/L (21.0-32.0); CREATININE 1.1 mg/dL (0.55-1.02); Chloride 106 mmol/L (98-107); Estimated GFR 57.17 (mL/min/1.73m2); Glucose 129 mg/dL (74-106); Potassium 4.7 mmol/L (3.5-5.1); Sodium 141 mmol/L (136-145)
== END 2022-12-02 02:39 | disposition home or self-care (01) ==
LOC: LOS 02:38
PROVIDERS: PCP Family Medicine; Visit Provider Family Medicine
DX: E11.9 Type 2 diabetes mellitus without complications (principal)
CPT/HCPCS: 80048

== ENCOUNTER 2024-03-27 10:54 | Outpatient (CLI) | payer MEDICAID, SELFPAY ==
[2024-03-27 10:50] LABS: ALT 29 U/L (14-59); AST 31 U/L (15-37); Albumin 3.4 g/dL (3.4-5.0); Alkaline Phosphatase 115 U/L (46-116); Anion Gap 10.4 mmol/L (3-11); BUN 16 mg/dL (7-18); Bilirubin, Total 0.45 mg/dL (0.2-1.0); CO2 29.6 mmol/L (21.0-32.0); CREATININE 0.9 mg/dL (0.55-1.02); Calcium 9.3 mg/dL (8.5-10.1); Calculated LDL 120 mg/dL (<100); Chloride 107 mmol/L (98-107); Cholesterol 190 mg/dL (<200); Estimated GFR 72.28 (mL/min/1.73m2); Glucose 98 mg/dL (74-106); HDL Cholesterol 40 mg/dL (40-60); Potassium 4.4 mmol/L (3.5-5.1); Sodium 147 mmol/L (136-145); Total Protein 6.9 g/dL (6.4-8.2); Triglyceride 151 mg/dL (<150)
== END 2024-03-27 10:55 | disposition home or self-care (01) ==
LOC: LBO 10:55
PROVIDERS: PCP Family Medicine; Visit Provider Family Medicine
DX: I25.10 Atherosclerotic heart disease of native coronary artery without angina pectoris (principal)
CPT/HCPCS: 36415; 80053; 80061

== ENCOUNTER 2024-11-19 15:35 | Emergency (ER) | payer MEDICAID, SELFPAY ==
[2024-11-19 15:38] VITALS: BP 105/55; PULSE 94; RESP 18; TEMP 37.1; O2SAT 98
--- NOTE | 2024-11-19 15:45 | DI.RAD_ITS ---
Exam(s) XR TIB/FIB LT XR KNEE LT 2V AP,LAT EXAM: XR KNEE LT 2V AP,LAT CLINICAL HISTORY: Fall. TECHNIQUE: 2D digital imaging was performed. AP and lateral views of the knee and lower leg. COMPARISON: CR LEFT KNEE LIMITED 1 OR 2 VIEWS from 05/13/2016 CR,XR XR TIB/FIB LT from 11/19/2024 FINDINGS: BONES: There has been no change in the alignment of the femoral tibial knee prosthesis. There is a fracture extending vertically through the lateral femoral condyle, lateral to the prosthesis. No additional fractures are identified elsewhere in the knee or lower leg. No bony destructive lesion is s een. JOINTS: The knee is normally aligned. A moderate hemarthrosis is seen. The ankle is unremarkable. SOFT TISSUE: Chronic appearing calcifications are noted in the anterior soft tissues. Mild soft tissue edema. IMPRESSION: Nondisplaced fracture through the lateral aspect of the lateral femoral condyle. DATA REPOSITORY: RADIATION DOSE DELIVERED:
--- NOTE | 2024-11-19 15:54 | W.ED.GENAD ---
Discharge Plan Disposition Patient Disposition: Home Condition: Stable Discharge Details Clinical Impression: Closed fracture of condyle of left femur Primary Care Provider: Oskar Moreno ED Provider: Eula Wright Home Meds and New Rx's Prescriptions: Continued (DME) Unistik 3 Comfort 1.8 mL device 0 .Route .MEDSUPPLY Patient Comments: Lancets indomethacin 25 mg capsule See Rx Instructions .ROUTE .COMPLEX Qty: 30 3RF Dose Instruction: TAKE ONE CAPSULE BY MOUTH THREE TIMES A DAY NEEDED FOR MIGRAINE Rx Instructions: TAKE ONE CAPSULE BY MOUTH THREE TIMES A DAY NEEDED FOR MIGRAINE metformin 1,000 mg tablet 1,000 mg PO BID MDD 2,000 mg Qty: 180 3RF omeprazole 40 mg capsule,delayed release(DR/EC) 40 mg PO DAILY Qty: 90 3RF nitroglycerin 0.4 mg tablet, sublingual 0.4 mg Sublingual PRN Qty: 30 6RF Rx Instructions: as needed for angina Vitamin D3 (calcium cit-phos) 1 EACH tablet 1 ea PO DAILY Qty: 90 aspirin [Aspir-81] 81 MG tablet,delayed release (DR/EC) 81 mg PO MWF Qty: 100 Rx Instructions: prevent cardiovascular events, LIMITED freq due to dyspepsia (DME) FreeStyle Lite Strips Strip 1 ea Miscellaneous BID Qty: 180 6RF Rx Instructions: Test daily to keep HbA1c below 6.5% for E11.9 (DME) pen needle, diabetic [BD Ultra-Fine Short Pen Needle] 31 gauge x 5/16 needle See Rx Instructions .ROUTE .COMPLEX Qty: 100 3RF Dose Instruction: USE DIRECTED DAILY TO ADMINISTER VICTOZA. TO MAINTAIN HBA1C<7% Rx Instructions: USE DIRECTED DAILY TO ADMINISTER VICTOZA. TO MAINTAIN HBA1C<7% amitriptyline 25 mg tablet 25 mg PO HS Qty: 90 3RF Rx Instructions: prevent migraine metoprolol succinate 25 mg tablet extended release 24 hr 25 mg PO DAILY Qty: 90 3RF telmisartan [Micardis] 20 mg tablet 20 mg PO DAILY Qty: 90 3RF isosorbide mononitrate 10 mg tablet 10 mg PO BID Qty: 30 0RF magnesium oxide 400 mg magnesium capsule 400 mg PO HS Qty: 90 3RF Rx Instructions: to prevent migraine attacks dapagliflozin propanediol [Farxiga] 5 mg tablet 5 mg PO DAILY Qty: 90 3RF nitroglycerin 0.1 mg/hr patch 24 hour 1 patch transdermal DAILY Qty: 90 3RF Rx Instructions: allow nitrate-free interval of approx. 10-12 hrs per 24-hour period ezetimibe [Zetia] 10 mg tablet 10 mg PO DAILY Qty: 90 3RF Rx Instructions: take one daily; lower risk of heart attack (DME) lancets 28 gauge misc See Rx Instructions .Route Qty: 100 3RF Rx Instructions: Unistik 3 comfort 28G lancet. Test once Daily. no Insulin. DX E11.9 atorvastatin 80 mg tablet 80 mg PO HS Qty: 90 3RF albuterol sulfate 90 mcg/actuation HFA aerosol inhaler 2 puff Inhalation Q4H PRN Qty: 1 12RF Rx Instructions: as needed for shortness of breath naproxen 500 mg tablet 500 mg PO BID PRN (Reason: pain) Qty: 60 2RF liraglutide [Victoza 2-Brendon] 0.6 mg/0.1 mL (18 mg/3 mL) pen injector 1.2 mg subcut DAILY Qty: 9 3RF Rx Instructions: 09/26/2024: Please fill with Brand name Victoza. This is covered by [place] Medicaid. Praluent Pen 75 mg/mL pen injector 75 mg subcut q2w Qty: 2 12RF Rx Instructions: one injection every two weeks to prevent recurrent heart attack Discharge Instructions Instructions: Femur Fracture ED Additional Instructions: It appears you do have a small nondisplaced fracture or broken bone on the outside of your distal femur. The knee hardware is intact. Orthopedics was contacted Dr. Kwon who is aware. They do recommend close follow-up in their office within the next 1 to 2 weeks. Their office should call you to make an appointment. Wear the hinged knee brace until follow-up with orthopedics except for bathing. Do not bear any weight on your affected leg. Please take Tylenol or Ibuprofen with food every 4-6 hours as needed for pain and swelling. Rest ice compression elevation while sitting or lying down to decrease pain and swelling. Thank you for allowing us to care for you today. Referrals: Khoi Kwon MD [ [facility] STAFF PHYSICIAN, [facility]opaedic [facility]] - 1 week Clinical Impression: Closed fracture of condyle of left femur Discharge Data Discharge Date/Time-TO BE ENTERED AT DEPARTURE: 06/22/25 19:41 HPI General Mode of arrival: wheelchair. Date/Time Provider Initiated Documentation: 11/19/24 15:44. Limitations to Documentation: no limitations. Information obtained by: patient, RN notes reviewed and old records reviewed. HPI Narrative: 64 year old female presents to the ER after a mechanical fall down approximately 4 steps [employer]. Reports landed on her left knee. Denies any other injuries Did not hit her head, no LOC. She does have a hx of LTKR, and bruising is noted to her anterior sky. She did not take any medications [employer]. Pmhx includes hyperlipidemia, GERD, HTN, Type 2 DM, CABG, [place], Barretts esophagus Related Data Home Medications ?Medication ?Instructions ?Recorded ?Confirmed calcium cmb no.1-vit F2-C3-KQ-B12 1 ea PO DAILY ##90 10/10/12 11/19/24 120 mg-1,000 unit-10 mg tablet (Vitamin D3 (with calcium cit-phos)) aspirin 81 mg tablet,delayed 81 mg PO MWF #100 tabs 04/06/17 11/19/24 release (Aspir-) Unistik 3 Comfort 1.8 mL device 07/30/23 11/19/24 blood sugar diagnostic (FreeStyle #180 strips 10/21/23 11/19/24 Lite Strips) pen needle, diabetic 31 gauge x #100 ea 10/21/23 11/19/2410/13 (BD Ultra-Fine Short Pen Needle) amitriptyline 25 mg tablet 25 mg PO HS #90 tabs 01/04/24 11/19/24 metoprolol succinate 25 mg 25 mg PO DAILY #90 tabs 01/24/24 11/19/24 tablet,extended release 24 hr telmisartan 20 mg tablet (Micardis) 20 mg PO DAILY #90 tabs 01/24/24 11/19/24 indomethacin 25 mg capsule See Rx Instructions .Route 02/08/24 11/19/24 .COMPLEX #30 caps metformin 1,000 mg tablet 1,000 mg PO BID #180 tabs 02/08/24 11/19/24 omeprazole 40 mg capsule,delayed 40 mg PO DAILY #90 caps 02/08/24 11/19/24 release isosorbide mononitrate 10 mg tablet 10 mg PO BID #30 tab-caps 03/28/24 11/19/24 magnesium oxide 400 mg PO HS #90 tab-caps 04/20/24 11/19/24 dapagliflozin propanediol 5 mg 5 mg PO DAILY #90 tabs 06/05/24 11/19/24 tablet (Farxiga) nitroglycerin 0.1 mg/hr 1 patch transdermal DAILY #90 06/09/24 11/19/24 transdermal 24 hour patch packets ezetimibe 10 mg tablet (Zetia) 10 mg PO DAILY #90 tabs 06/26/24 11/19/24 nitroglycerin 0.4 mg sublingual 0.4 mg sublingual PRN #30 tabs 08/08/24 11/19/24 tablet lancets 28 gauge #100 ea 08/30/24 11/19/24 albuterol sulfate 90 mcg/actuation 2 puff inhalation Q4H PRN ##1 09/25/24 11/19/24 aerosol inhaler atorvastatin 80 mg tablet 80 mg PO HS #90 tabs 09/25/24 11/19/24 naproxen 500 mg tablet 500 mg PO BID PRN pain #60 tabs 09/25/24 11/19/24 liraglutide 0.6 mg/0.1 mL (18 mg/3 1.2 mg (0.2 mL) subcut DAILY #9 09/26/24 11/19/24 mL) subcutaneous pen injector pens (Victoza 2-Brendon) alirocumab 75 mg/mL subcutaneous 75 mg subcut q2w #2 pens 10/24/24 11/19/24 pen injector (Praluent Pen) Previous Rx's ?Medication ?Instructions ?Recorded blood sugar diagnostic (FreeStyle #180 strips 10/21/23 Lite Strips) pen needle, diabetic 31 gauge x #100 ea 10/21/2310/13 (BD Ultra-Fine Short Pen Needle) amitriptyline 25 mg tablet 25 mg PO HS #90 tabs 01/04/24 metoprolol succinate 25 mg 25 mg PO DAILY #90 tabs 01/24/24 tablet,extended release 24 hr telmisartan 20 mg tablet (Micardis) 20 mg PO DAILY #90 tabs 01/24/24 indomethacin 25 mg capsule See Rx Instructions .Route 02/08/24 .COMPLEX #30 caps metformin 1,000 mg tablet 1,000 mg PO BID #180 tabs 02/08/24 omeprazole 40 mg capsule,delayed 40 mg PO DAILY #90 caps 02/08/24 release isosorbide mononitrate 10 mg tablet 10 mg PO BID #30 tab-caps 03/28/24 magnesium oxide 400 mg PO HS #90 tab-caps 04/20/24 dapagliflozin propanediol 5 mg 5 mg PO DAILY #90 tabs 06/05/24 tablet (Farxiga) nitroglycerin 0.1 mg/hr 1 patch transdermal DAILY #90 06/09/24 transdermal 24 hour patch packets ezetimibe 10 mg tablet (Zetia) 10 mg PO DAILY #90 tabs 06/26/24 nitroglycerin 0.4 mg sublingual 0.4 mg sublingual PRN #30 tabs 08/08/24 tablet lancets 28 gauge #100 ea 08/30/24 albuterol sulfate 90 mcg/actuation 2 puff inhalation Q4H PRN ##1 09/25/24 aerosol inhaler atorvastatin 80 mg tablet 80 mg PO HS #90 tabs 09/25/24 naproxen 500 mg tablet 500 mg PO BID PRN pain #60 tabs 09/25/24 liraglutide 0.6 mg/0.1 mL (18 mg/3 1.2 mg (0.2 mL) subcut DAILY #9 09/26/24 mL) subcutaneous pen injector pens (Victoza 2-Brendon) alirocumab 75 mg/mL subcutaneous 75 mg subcut q2w #2 pens 10/24/24 pen injector (Praluent Pen) Allergies Allergy/AdvReac Type Severity Reaction Status Date / Time lisinopril AdvReac Unknown cough Verified 11/19/24 15:44 General Stated Complaint: Orthopedic ASHLEE: 3 Review of Systems All systems reviewed & are unremarkable except as noted in HPI and below Musculoskeletal Musculoskeletal: Reports as per HPI, Reports arthralgias and Reports joint swelling Exam Narrative Exam Narrative: General: Well Developed, Awake and Alert, conversant. Skin: Warm and Dry HEENT: Head: No palpable deformities, Normocephalic Neck: No midline tenderness, no step off, no deformity to palpation of C-spine. Trachea midline. Chest: No surface trauma. Nontender without crepitus or deformity. Lungs clear to ausculatation bilaterally. Heart: RRR, no rubs, murmurs or gallop. Extremities: Sensation intact. Peripheral pulses intact and equal. See extremity diagram below. Neuro: ANO x4, GCS 15, cranial nerves II through XII intact. Motor and sensory exam nonfocal. Reflexes are symmetric. Extrem General: normal to inspection Left lower extremity: knee (Heel toe knee replacement scar noted) Details: tenderness and lower leg Details: tenderness and ecchymosis (Contusions noted to her anterior sky and swelling) Course Vital Signs Vital signs: Vital Signs Temperature 37.1 C 11/19/24 15:38 Pulse 94 H 11/19/24 15:38 Respiratory Rate 18 11/19/24 15:38 Blood Pressure 105/55 L 11/19/24 15:38 Pulse Oximetry 98 11/19/24 15:38 Temperature 37.1 C 11/19/24 15:38 Temperature Source Oral 11/19/24 15:38 Pulse 94 H 11/19/24 15:38 Respiratory Rate 18 11/19/24 15:38 Blood Pressure 105/55 L 11/19/24 15:38 Blood Pressure Position Sitting 11/19/24 15:38 Pulse Oximetry 98 11/19/24 15:38 Pain Level 10 11/19/24 15:38 Medical Decision Making 64 year old female presents to the ER after a mechanical fall down approximately 4 steps [employer]. Reports landed on her left knee. Denies any other injuries Did not hit her head, no LOC. She does have a hx of LTKR, and bruising is noted to her anterior sky. She did not take any medications [employer]. Pmhx includes hyperlipidemia, GERD, HTN, Type 2 DM, CABG, [place], Barretts esophagus XR left knee, tib fib 1 gm Tylenol PO and Ice pack ordered. V-rad reports the x-rays as negative however I am questioning a possible nondisplaced fracture to the lateral epicondyle. Will consult with orthopedics. 1731: Contacted Khoi Kwon via [employer] and presented the patient case. 1753: Spoke with Dr. Kwon who was able to review the images he does agree that there is a questionable fracture to the lateral epicondyle of the left knee. He recommends a CT and a hinged knee brace. Nonweightbearing and follow-up. CT ordered. Patient updated on plan of care. She reports that she is still having soreness after the Tylenol, [address] confirms fracture of the lateral condyle of the femur, Will place in a hinged knee brace and supply crutches, will discuss non-weight bearing and follow up with Ortho. Patient discharged with knee hinged brace crutches instructed on follow-up and strict return instructions. Remained hemodynamically stable alert and oriented throughout her her stay. This text was generated using [employer] dictation system, please disregard any oddities of phrase or misspellings. Medical Records Medical records reviewed: Yes I reviewed the patient's medical records. Imaging Data Radiologic Study: Imaging: CT Scan Radiologist's impression: TECHNIQUE: Imaging protocol: CT of the left lower extremity without contrast was performed. Exam focused on the knee. Radiation optimization: All CT scans at this facility use at least one of these dose optimization techniques: automated exposure control; mA and/or kV adjustment per patient size (includes targeted exams where dose is matched to clinical indication); or iterative reconstruction. COMPARISON: CR XR KNEE LT 3V AP,LAT,WIN 11/19/2024 4:17 PM FINDINGS: Tubes, catheters and devices: Beam hardening artifact from prosthesis slightly limits evaluation. Bone mineralization appears decreased. There is a fracture at the level of the lateral femoral condyle, nondisplaced. This is best appreciated on coronal assessment. Bones/joints: There is a moderate to large joint effusion. Three-part knee prosthesis in place. Soft tissues: There are dystrophic calcifications in the subcutaneous tissues of the anterior thigh. IMPRESSION: Nondisplaced fracture lateral femoral condyle. Joint effusion associated. Thank you for allowing us to participate in the care of your patient. Dictated and Authenticated by: Bernadette Cheng MD [facility] All Active Problems (Updated 11/19/24 @ 18:52 by Eula Wright NP) Closed fracture of condyle of left femur (Acute) Radicular pain of left lower extremity (Acute) Family history of liver cancer (Chronic) Brother Left hip pain (Acute) Paulino's esophagus determined by biopsy (Acute) Erosive gastritis (Acute) GERD (gastroesophageal reflux disease) (Chronic) Hx of CABG (Chronic ~2006) Angina pectoris, unspecified (Acute 09/08/11) Bilateral hand numbness (Acute 07/25/14) Carotid bruit (Acute 08/22/01) Enthesopathy of hip region (Acute 10/31/12) Fatigue (Acute 10/31/12) Headache (Acute 09/08/11) History of total left knee replacement (TKR) (Chronic) Pure hypercholesterolemia (Chronic 09/08/11) CONSULT DR ELLIS ([facility]) 2010; CHOL >400 PRIOR TO RX; GOAL LDL<70 ! Trial Alirocumab 01/2015 Pain, joint, lower leg, left (Chronic 09/08/11) left knee, despite TKA; Dr Rivera Obesity, unspecified (Chronic 09/08/11) initial goal <200 (BMI 39) Migraine (Chronic) [place] 2010; Indocin for acute, metoprolol & amitriptyline for prevention; also daily h/a in past; Dr Spencer 05/2014 Elevated alkaline phosphatase measurement (Chronic 12/30/15) with normal GGT; most likely coming from bone (not liver) Diabetes mellitus (Chronic 09/16/10) FBS 142, rpt >140; A1c 6.4; DM educator 09/2010; goal A1c<7 DM w/ complication (Chronic) complicated by CAD, CABG 2006, Stent 2015; goal A1c<7 Chronic airway obstruction, not elsewhere classified (Chronic 09/08/11) NL PF 02/14/07: FEV1 2.1 (80% PRED, 80% FVC); H/O SMOKINJG; d/c 2010 Carotid artery stenosis (Chronic 09/08/11) L bruit; Duplex no significant stenosis [id number]; f/u 01/2013 Coronary atherosclerosis of [place] coronary vessel (Chronic 08/30/06) [place] 08/2006; CABG 09/2006; ANGINA; [place] Stent 10/2013 Chronic airway obstruction, not elsewhere classified (Chronic 09/08/11) NL PF 02/14/07: FEV1 2.1 (80% PRED, 80% FVC); H/O SMOKINJG; d/c 2010 Atherosclerosis of [place]q coronary artery of tang[place]naq heart without angina pectoris (Chronic 08/30/06) [place] 08/2006; CABG 09/2006; ANGINA; [place] Stent 10/2013 Surgical History History of hysterectomy Replacement of total knee joint (05/04/11) DON, LEFT KNEE Coronary Stent (11/03/13) Integrity (wildcrafttronic) drug eluting stent, [place] [facility] [place] - MAC (03/08/15) Family History Mother Neoplasm Hyperlipidemia Heart disease Sister Breast cancer Brother Liver cancer Social History Smoking/Tobacco Use Status: Former Tobacco Use Quit Date: 05/31/08 Pack-years: 68 Tobacco: How many years used: 39 Second Hand Exposure: No Smoking risk assessment performed?: Yes Alcohol Intake: current Alcohol Intake frequency: holidays/special occasions only Details: drinks 1-2 drinks at a sitting, once a month Drug use: Never Substance use type: does not use Details: alcohol: pt. 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 Pets and animals: No Sexually active: No Do you think of yourself as: straight/heterosexual Current gender identity: female What is your relationship status?: How often do you talk on the phone with friends or family?: three or more times per week How often do you get together with friends or relatives?: three or more times per week How often do you attend taoist or sikhism services?: 1-3 times per year Do you belong to any clubs or organized social groups?: no Panel score (0-1 are the most socially isolated patients): 2 What type of physical activity do you participate in: walking Duration: < 15 minutes/day Frequency: 1-2 times per week Stephania/Advent: Taoism Special stephania needs: No Seatbelt use: always Helmet use: No (Never) Drive intox or ride w/intox spike driver: No Water heater temp set <120 deg: Yes Working smoke detector in home: Yes Fire extinguisher in home: Yes Carbon monox detector in home: Yes Firearms in home: No Do you feel safe at home: Yes Do you feel safe in your relationship?: Yes Victim of physical abuse: No Victim of emotional abuse: No
[2024-11-19] MEDS: Acetaminophen 500 MG TAB 1000 MG PO (16:02)
--- NOTE | 2024-11-19 16:54 | DI.VRAD_ITS ---
PROCEDURE INFORMATION: Exam: XR Left Tibia and Fibula Exam date and time: 11/19/2024 4:16 PM Age: 64 years old Clinical indication: Other: Fall TECHNIQUE: Imaging protocol: Radiologic exam of the left tibia and fibula. Views: 2 views. COMPARISON: No relevant prior studies available. FINDINGS: Bones/joints: Knee prosthesis in place. Alignment is anatomic. No evidence for fracture. Soft tissues: Normal. IMPRESSION: No evidence for fracture. Dictated and Authenticated by: Bernadette Cheng MD. Orderin Adriana Forde MD
--- NOTE | 2024-11-19 16:55 | DI.VRAD_ITS ---
PROCEDURE INFORMATION: Exam: XR Left Knee Exam date and time: 11/19/2024 4:17 PM Age: 64 years old Clinical indication: Other: Fall TECHNIQUE: Imaging protocol: Radiologic exam of the left knee. Views: 1 or 2 views. COMPARISON: CR XR TIB/FIB LT 11/19/2024 4:16 PM FINDINGS: Bones/joints: Small joint effusion. There are some dystrophic calcifications anteriorly in the distal thigh subcutaneous tissues. Two part prosthesis in place. Bone density appears appropriate. No evidence for fracture. Soft tissues: See Bones/joints finding. IMPRESSION: Small joint effusion. No evidence for fracture. Dictated and Authenticated by: Bernadette Cheng MD. Orderin Adriana Forde MD
[2024-11-19 16:58] VITALS: BP 92/39; PULSE 89; RESP 18; O2SAT 96
[2024-11-19 17:44] VITALS: BP 94/69; PULSE 82; RESP 18; O2SAT 98
--- NOTE | 2024-11-19 17:45 | DI.CT_ITS ---
Exam(s) CT LOWER EXTREMITY LT WO EXAM: CT LOWER EXTREMITY LT WO CLINICAL HISTORY: Left knee pain, R/O Fracture. TECHNIQUE: Imaging Protocol: Axial computed tomography images with coronal and sagittal reformatted images were created and reviewed. CONTRAST MATERIAL: Noncontrast COMPARISON: CR,XR XR KNEE LT 2V AP,LAT from 11/19/2024 FINDINGS: Bones: There is a knee prosthesis which creates artifact. There is a vertically oriented fracture through the lateral most aspect of the lateral femoral condyle, lateral to level of the prosthesis. No cellulitic or osteomyelitic changes are identified. No lytic or sclerotic lesions are identified. Joints: Moderate hemarthrosis. Soft Tissues: Chronic appearing calcifications in the anterior subcutaneous fat.. IMPRESSION: Nondisplaced fracture at the lateral femoral condyle, lateral to level of the prosthesis. No additional fractures. The preliminary VRAD report was reviewed. RADIATION DOSE DELIVERED: 149.75mGy.cm Total DLP DATA REPOSITORY: All CT scans at this facility are submitted to the National Radiology Data Registry (NRDR) Dose Index Registry (DIR) with the [employer] (ACR). RADIATION OPTIMIZATION: All CT scans at this facility use at least one of these dose optimization techniques: automated exposure control; mA and/or kV adjustment per patient size (includes targeted exams where dose is matched to clinical indication); or iterative reconstruction.
[2024-11-19] MEDS: Ibuprofen 800 MG TAB PO (18:05)
--- NOTE | 2024-11-19 18:46 | DI.VRAD_ITS ---
PROCEDURE INFORMATION: Exam: CT Left Lower Extremity Without Contrast, Knee Exam date and time: 11/19/2024 6:29 PM Age: 64 years old Clinical indication: Left; Prior surgery; Surgery date: 6+ months; Surgery type: Knee replacement; L knee pain, R/O FX TECHNIQUE: Imaging protocol: CT of the left lower extremity without contrast was performed. Exam focused on the knee. Radiation optimization: All CT scans at this facility use at least one of these dose optimization techniques: automated exposure control; mA and/or kV adjustment per patient size (includes targeted exams where dose is matched to clinical indication); or iterative reconstruction. COMPARISON: CR XR KNEE LT 3V AP,LAT,WIN 11/19/2024 4:17 PM FINDINGS: Tubes, catheters and devices: Beam hardening artifact from prosthesis slightly limits evaluation. Bone mineralization appears decreased. There is a fracture at the level of the lateral femoral condyle, nondisplaced. This is best appreciated on coronal assessment. Bones/joints: There is a moderate to large joint effusion. Three-part knee prosthesis in place. Soft tissues: There are dystrophic calcifications in the subcutaneous tissues of the anterior thigh. IMPRESSION: Nondisplaced fracture lateral femoral condyle. Joint effusion associated. Dictated and Authenticated by: Bernadette Cheng MD. Orderin Adriana Forde MD
--- NOTE | 2024-11-21 11:14 | NUR.NOTE ---
Accessed Pt chart to document diagnosis on the [facility] paperwork
== END 2024-11-19 19:41 | disposition home or self-care (01) ==
PROVIDERS: Emergency Provider Registered Nurse Emergency; PCP Family Medicine
DX: S72.425A Nondisplaced fracture of lateral condyle of left femur, initial encounter for closed fracture (principal); I25.10 Atherosclerotic heart disease of native coronary artery without angina pectoris; I25.2 Old myocardial infarction; Z95.5 Presence of coronary angioplasty implant and graft; Z95.1 Presence of aortocoronary bypass graft; Z96.652 Presence of left artificial knee joint; W18.39XA Other fall on same level, initial encounter; Y93.89 Activity, other specified
CPT/HCPCS: 99285; 73560; 73590; 73700; 99284

== ENCOUNTER 2024-12-04 15:46 | Outpatient (CLI) | payer MEDICAID, SELFPAY ==
--- NOTE | 2024-12-04 15:30 | DI.RAD_ITS ---
Exam(s) XR KNEE LT 2V AP,LAT EXAM: XR KNEE LT 2V AP,LAT CLINICAL HISTORY: L FEMUR FX. TECHNIQUE: 2D digital imaging was performed. Three views. COMPARISON: CR,XR XR KNEE LT 2V AP,LAT from 11/19/2024 FINDINGS: BONES: Previously noted fracture at the lateral aspect of the femoral component of the prosthesis is not as well visualized on the current exam partially due to projection. No bony destructive lesion is seen. JOINTS: The knee is normally aligned. A joint effusion is seen. SOFT TISSUE: Normal. IMPRESSION: Stable alignment distal femoral fracture. DATA REPOSITORY: RADIATION DOSE DELIVERED:
== END 2024-12-04 15:47 | disposition home or self-care (01) ==
LOC: DIORS 15:46
PROVIDERS: PCP Family Medicine; Visit Provider Student in an Organized Health Care Education/Training Program
DX: S72.412A Displaced unspecified condyle fracture of lower end of left femur, initial encounter for closed fracture (principal)
CPT/HCPCS: 73560

== ENCOUNTER 2025-01-04 14:07 | Outpatient (CLI) | payer MEDICAID, SELFPAY ==
--- NOTE | 2025-01-04 14:00 | DI.RAD_ITS ---
Exam(s) XR KNEE LT 2V AP,LAT EXAM: XR KNEE LT 2V AP,LAT CLINICAL HISTORY: F/U L FEMUR FX. TECHNIQUE: 2D digital imaging was performed. COMPARISON: CR XR KNEE LT 2V AP,LAT from 12/04/2024 FINDINGS: Two views: Position alignment of the components of the prosthesis remain stable. No fractures evident. Small area of lucency subjacent to the more medial aspect the tibial component is again noted, possibly indicating loosening. There is no abnormal lucency around the femoral component. Multiple calcifications are again noted in the quadriceps tendon. IMPRESSION: Subtle linear lucency subjacent to the tibial component of the prosthesis. Correlation any clinical signs of loosening recommended. Multiple calcifications are seen in the lateral aspect of the quadriceps tendon. DATA REPOSITORY: RADIATION DOSE DELIVERED:
== END 2025-01-04 14:08 | disposition home or self-care (01) ==
LOC: DIORS 14:08
PROVIDERS: PCP Family Medicine; Visit Provider Student in an Organized Health Care Education/Training Program
DX: S72.412A Displaced unspecified condyle fracture of lower end of left femur, initial encounter for closed fracture (principal)
CPT/HCPCS: 73560